=== PATIENT | male | born 1990 | race Caucasian/White ===

== ENCOUNTER → 2023-06-21 | Outpatient (CLI) | payer OTHER ==
--- NOTE | 2023-06-21 12:21 | MR ---
EXAMINATION TYPE: MR brain wo con DATE OF EXAM: 06/21/2023 COMPARISON: NONE HISTORY: Seizures, Unspecified urinary incontinence TECHNIQUE: T1-weighted sagittal, T2, FLAIR, and diffusion axial, and T2 coronal coronal views of the brain are submitted. FINDINGS: There is no evidence of acute ischemia. The ventricles, basal cisterns, and sulci overlying the conv exities are consistent with the patient's age. There is no mass effect. Cerebellar tonsils are low-lying in position. Measure approximately 3 mm below the foramen magnum. No tonsillar beaking.. Sella turcica has a normal appearance. Changes of chronic sinusitis. Orbits are symmetric. IMPRESSION: 1. 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 No tonsillar beaking. 2. Trace amount of fluid surrounding the optic nerves is nonspecific and likely physiologic. If there is concern for papilledema or benign increased intracranial pressure, correlate clinically. 3. Chronic sinusitis.
== END | disposition home or self-care (01) ==
LOC: RADMRIMAIN 10:05
PROVIDERS: ATTEND Family Medicine
DX: J32.9 Chronic sinusitis, unspecified (principal); G93.89 Other specified disorders of brain; G40.89 Other seizures; R32 Unspecified urinary incontinence
CPT/HCPCS: 70551